=== PATIENT | male | born 1970 | race Caucasian/White ===

== ENCOUNTER 2017-11-01 07:39 | Outpatient (CLI) | payer OTHER ==
--- NOTE | 2017-11-01 09:54 | MRI ---
MRI LUMBAR SPINE: HISTORY: Back pain down left leg since this summer. TECHNIQUE: Multiplanar, multisequence noncontrast-enhanced MRI images lumbar spine obtained. RADIOGRAPHIC FINDINGS: T12-L1: Unremarkable. L1-2: Unremarkable. L2-3: There is some mild disk desiccation. No evidence of disk herniations, central stenosis, or ne ural foraminal narrowing is seen. L3-4: There is some mild disk desiccation. There is a left-sided L3-4 foraminal focal disk protrusi on and associated annular fissure. This focal protrusion does abut the exiting left L3 nerve root. L4-5: Disk desiccation is seen. There is a b disk bulge with bilateral facet hypertrophy. No signi ficant degree of central spinal stenosis seen. The neural foramen are patent. L5-S1: Unremarkable. IMPRESSION: 1. L2-3 disk desiccation with no significant evidence of central stenosis. 2. Left L3-4 foraminal disk protrusion and annular fissure. POS: [facility]
--- NOTE | 2017-11-01 10:42 | CT ---
CT CERVICAL SPINE WITHOUT CONTRAST: History: Cervicalgia. Pain. Comparison: None. FINDINGS: There is 3.2 mm of anterolisthesis of C4 upon C5. Vertebral body heights are maintained. No fracture. No prevertebral soft tissue swelling. Lateral masses of C1 and C2 as well as the facets maintain beth ropriate alignment. Intact odontoid process. Soft tissue neck structures are unremarkable. Aeration tract is patent. Upper mediastinum and lung ap ices are unremarkable. Limited evaluation of the contents of the central spinal canal and neural foramina due to lack of int rathecal contrast. C2-3: No significant disc osteophyte complex. No significant central canal stenosis or foraminal narr owing. C3-4: No significant disc osteophyte complex. No significant central canal stenosis. Foramina are pat ent. C4-5: No significant disc osteophyte complex. No significant central canal stenosis. Neural foramina patent. C5-6: There appears to be a central disc bulge which deforms the thecal sac and likely causes some ma ss effect upon the cervical cord. There is mild central canal stenosis. Bilaterally, neural foramina are patent. C7-T1: No significant disc osteophyte complex. No significant central canal stenosis. Foramina are pa tent. IMPRESSION: Limited evaluation due to technique. There appears to be significant central canal stenosis at C5-5 a nd C6-7 due to broad based disc osteophyte complex. Better interrogation with post myelogram CT versu s MRI. POS: [facility]
== END 2017-11-01 07:40 | disposition home or self-care (01) ==
LOC: TBSIIMAG 07:39
PROVIDERS: ATTEND Neurological Surgery
DX: M51.16 Intervertebral disc disorders with radiculopathy, lumbar region (principal); M54.2 Cervicalgia; M25.78 Osteophyte, vertebrae
CPT/HCPCS: 72125; 72148